=== PATIENT | female | born 1980 | race Two or more races ===

== ENCOUNTER 2024-07-23 14:30 | Outpatient (RCR) | payer MEDICAID, SELFPAY ==
--- NOTE | 2024-07-16 14:10 | PTNOTE_ITS ---
PT OP Initial Eval Patient Information Outpatient Physical Therapy Treatment Date: 07/16/24 Visit Reasons: lower back pain Medical Diagnosis: M51.36 Treatment Dx #1: LBP with radiculopathy Start of Care: 07/16/24 Date of Onset: 1 yr ago Smoking Status Smoking Status: Current every day smoker Cessation Counseling Provided: BLOSSOM was advised that quitting smoking is the single most important factor to protect the health of themselves and their family. Discussed the benefits of quitting smoking with patient. Encouraged patient to quit smoking and provided Cessation assistance materials and resources. Tobacco Use: Cigarette Years smoked: 26 Are you interested in quitting?: No Initial Assessment Subjective: Pt is 43 yr old female who reports long Hx of LBP that runs down the L LE and that has worsened over the past year. Increased pain with sitting >10 mins, sweeping, bending and twisting and lifting. PMH: none reported Imaging: Xray of L/S in EMR Early degenerative disc disease L3-L4, L4-L5 Pt goal: to get rid of the pain Objective: Trunk ArOM: ? B SB 50% of normal with pain ? Extension: 20% with pain around L4-5, L5-S1 ? Flexion: 5 from floor with LBP ? B rotation: 60% ? TTP: moderate paraspinals L5-S1 ? Neuro: L SLR: positive Assessment: ? Pt presents with trunk flexion sensitivity and overlying myofascial pain ? and TTP around L5-S1 consistent with ? lower lumbar disc bulge(s) with radiculopathy. Pt requires skilled therapy in order to decrease ? pain and improve sitting/standing tolerance and has fair rehab potential. Eval ?followed by HEP printout. 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 1. Ind with HEP ? 2. Improved sitting/standing tolerance to 30 minutes with <=4/10 LBP ? 3. Decreased lower paraspinal TTP from mod to min 4. Improved HH chore tolerance to at least 30 minutes with <=3/10 LBP and no ?increase in LE ssx ? Treatment Plan ? 1. Manual therapy ? 2. Therex ? 3. Modalities as indicated, moist heat, ice, estim, mechanical traction Frequency and Duration: 1-2x a week for 12 sessions plus eval Certification Dates: 07/16/24 to 10/12/24 Procedure Charges OP PT Eval Mod Complex 30 minutes: Yes
--- NOTE | 2024-07-23 19:30 | PT.ODAYNRPT ---
PT Outpatient Daily Note OP Daily Note Outpatient Physical Therapy Treatment Date: 07/23/24 Visit Reasons: lower back pain Subjective: Same as time of evaluatoin Objective: See F/S for therex MT: STM L/S with flexbar x7' Assessment: Moderate TTP of L/S on R with MT Plan: Continue per POC Length of Time (minutes) of Treatment: 30 Minutes Procedure Charges Therapeutic Exercise 30 minutes: Yes
== END 2024-08-06 23:59 | disposition home or self-care (01) ==
LOC: CPTX 14:30
PROVIDERS: PCP Physician Assistant; Referring Provider Physician Assistant; Visit Provider Physician Assistant
DX: M54.16 Radiculopathy, lumbar region (principal)
CPT/HCPCS: 97110; 97162

== ENCOUNTER 2024-08-16 11:21 | Emergency (ER) | payer MEDICAID, SELFPAY ==
[2024-08-16 11:59] VITALS: BP 128/80; PULSE 93; RESP 18; TEMP 36.9; O2SAT 98
--- NOTE | 2024-08-16 11:59 | XR_ITS ---
Examination: CT brain head without contrast. 2-D sagittal coronal reconstructions Date and time of exam:August 16, 20242022 hours INDICATIONS: Generalized head pain today CTDI: vol (mGy):49.5 DLP: (mGycm):1075 Technique: Multiple CT axial sections of the brain have been obtained, 5 mm slice thickness. Contrast has not been administered. 2-D sagittal, coronal reconstructions have been obtained Low dose protocols were performed. One or more of the following dose reduction techniques were used; automated exposure control, adjustment of the mA and/or KV according to patient size, use of iterative reconstruction technique. Findings: No significant ventricular enlargement. Intra-axial or extra-axial hemorrhage density is not seen. No mass effect or midline shift Basal cisterns are not remarkable. Fourth ventricle is midline. Cranial vault intact. Impression: Negative for acute hemorrhage, mass effect or midline shift Advise clinical correlation and follow-up accordingly
--- NOTE | 2024-08-16 13:07 | PD.EDHA ---
ED Headache RME/HPI General Chief Complaint: Headache Stated Complaint: HEAD PAIN FOR MONTH Time Seen by Provider: 08/16/24 11:27 Arrival date/time: 08/16/24 11:21 43-year-old female presents the emergency department complaint of headache x 1 month patient reports no fever nausea or vomiting no neck pain no dizziness or weakness Limitations: no limitations Related Data Home Medications ?Medication ?Instructions ?Recorded ?Confirmed acetaminophen 325 mg tablet 325 mg PO Q4H PRN Pain 08/11/22 10/05/22 ibuprofen 800 mg tablet 800 mg PO Q8H PRN Pain 08/11/22 08/11/22 sertraline 50 mg tablet 50 mg PO QDAY 08/11/22 10/05/22 ondansetron HCl 4 mg tablet 4 mg PO Q6H 10/05/22 10/05/22 Previous Rx's ?Medication ?Instructions ?Recorded tramadol 100 mg tablet 100 mg PO BID PRN pain #8 tabs 09/20/22 acetaminophen 500 mg capsule 1,000 mg (2 x 500 mg) PO Q8HR PRN 07/19/23 pain #30 caps ibuprofen 800 mg tablet 800 mg PO TID PRN pain #30 tabs 07/19/23 rizatriptan 10 mg disintegrating See Rx Instructions PO .COMPLEX 11/30/23 tablet (Maxalt-CREDIT ADMINISTRATOR) #30 tabs acetaminophen-caffeine 500 mg-65 1 tab PO Q6H PRN pain #30 tabs 08/16/24 mg tablet (Excedrin Tension Headache) ibuprofen 800 mg tablet 800 mg PO TID PRN pain #30 tabs 08/16/24 Allergies Allergy/AdvReac Type Severity Reaction Status Date / Time No Known Allergies Allergy Verified 08/16/24 11:24 Review of Systems Review of Systems Systems Reviewed: All systems reviewed, normal except as documented Constitutional Constitutional: Reports system reviewed and no additional complaints, except as documented, Denies fever(s) and Reports headache(s) Eyes Eyes: Reports system reviewed and no additional complaints, except as documented and Denies blurry vision ENT Ears, Nose, Mouth, and Throat: Reports system reviewed and no additional complaints, except as documented, Reports headache(s), Denies nasal congestion and Denies nasal discharge Cardiovascular Cardiovascular: Reports system reviewed and no additional complaints, except as documented, Denies chest pain and Denies dyspnea Respiratory Respiratory: Reports system reviewed and no additional complaints, except as documented, Denies chest congestion, Denies cough and Denies dyspnea Gastrointestinal Gastrointestinal: Reports system reviewed and no additional complaints, except as documented and Denies abdominal pain Integumentary/Breasts Skin/Breast: Reports system reviewed and no additional complaints, except as documented and Denies rash Neurologic Neurologic: Reports system reviewed and no additional complaints, except as documented, Reports as per HPI and Reports headache(s) Past Medical History Past Medical History NEUROLOGIC: Negative Neurological Disorders, Cerebrovascular Accident, Transient Ischemic Attacks (TIA), Dementia, Alzheimer's Disease, Parkinson's Disease, Brain Tumor, Meningitis, Seizures, Epilepsy, Multiple Sclerosis, Cerebral Palsy, Amyotrophic Lateral Sclerosis (ALS/Tasha Gehrig's), Guillain-Flushing Syndrome, Spina Bifida, Paralysis, Peripheral Neuropathy, Mckenna's Palsy, Subdural Hematoma, Migraine, Head Trauma, Spinal Cord Injury or Traumatic Brain Injury CARDIAC: Negative Cardiac Disorders, Myocardial Infarction, Cardiac Arrhythmia, Atrial Fibrillation, Angina, Heart Murmur, Coronary Artery Disease, Atherosclerotic Heart Disease, Peripheral Vascular Disease, Hypercholesterolemia, Aneurysm, Congestive Heart Failure, Congenital Heart Disease, Valvular Heart Disease, Rheumatic Fever, Cardiomyopathy, Edema, Pericarditis, Cellulitis, Deep Vein Thrombosis, Hypertension, Hypotension or Varicose Veins RESPIRATORY: Negative Chronic Obstructive Pulmonary Disease (COPD), Asthma, Bronchitis, Emphysema, Pneumonia, Pulmonary Fibrosis, Cystic Fibrosis, Tuberculosis, Pulmonary Embolism, Pulmonary Edema or Sleep Apnea GASTROINTESTINAL: Negative Gastrointestinal Disorders, Hepatitis, Cirrhosis, Pancreatitis, Celiac Disease, Gall Bladder Disease, Gastrointestinal Bleed, Esophageal Varices, Medrano's Esophagus, Colitis, Ulcerative Colitis, Diverticulitis, Diverticulosis, Ulcer, Colorectal Cancer, Irritable Bowel, Crohn's Disease, Obstructive Bowel, Hiatal Hernia, Hemorrhoids, Gastroesophageal Reflux Disease or Obesity GENITOURINARY: Negative Genitourinary Disorders, Renal Disease, Kidney Stones, Polycystic Kidney Disease, Neurogenic Bladder, Inguinal Hernia, Dialysis, Prostate Cancer or Benign Prostatic Hyperplasia REPRODUCTIVE: Positive Previous Pregnancies; Negative Breast Cancer, Endometriosis, Genital Herpes, Gonorrhea, Pelvic Inflammatory Disease, Syphilis, Testicular Cancer or Uterine Prolapse MUSCULOSKELETAL: Negative Musculoskeletal Disorders, Muscular Dystrophy, Myasthenia Gravis, Marfan's Syndrome, Bone Cancer, Arthritis, Rheumatoid Arthritis, Osteoporosis, Degenerative Disk Disease, Gout, Scoliosis, Carpal Tunnel Syndrome, Fibromyalgia, Fractures, Degenerative Joint Disease, Osteomyelitis or Poliovirus ENT: Negative Cataracts, Glaucoma, Blind, Retinal Detachment, Macular Degeneration, Ear Infection, Deafness, Head Trauma or Eye Prosthesis ENDOCRINE: Negative Endocrine Disorders, Diabetes Mellitus Type 1, Diabetes Mellitus Type 2, Hypoglycemia, Edilson's Syndrome, Huy's Disease, Hyperthyroidism, Hypothyroidism, Parathyroid Disease, Pituitary Disease, Systemic Lupus Erythematosus, Syndrome of Inappropriate Antidiuretic Hormone (SIADH), Adrenal Disease or Graves' Disease HEMATOLOGIC: Negative Blood Disorders, Anemia, Leukemia, Hemophilia, Thalassemia, Sickle Cell Disease or Clotting Problems PSYCHO/SOCIAL: Negative Psychiatric Problems, Schizophrenia, Recreational Drug Use, Bipolar Disorder, Depression, Anxiety, Behavior Problems, Self-Mutilation, Attention Deficit Disorder, Attention Deficit Hyperactivity Disorder, Depression, Post Traumatic Stress Disorder or Eating Disorder OTHER HISTORY: Positive Blood Transfusions; Negative Hospitalization, Autoimmune Disease, Down Syndrome, Autism, Developmental Delay, Shingles, Falls, Blood Transfusion Reaction, Anesthesia Reactions, Organ Transplant, Chemotherapy, Radiation Therapy, Hyperbaric Therapy, MRSA, VRSA, Vancomycin-Resistant Enterococci, Human Immunodeficiency Virus (HIV), Chicken Pox, Measles, Mumps, Rubella (Mosotho Measles), Pertussis, Clostridium Difficile, Cancer, Breast Cancer, Cervical Cancer, Colorectal Cancer, Lung Cancer, Ovarian Cancer, Prostate Cancer or Testicular Cancer Family History FAMILY HISTORY: Positive Family Respiratory Disorders and Family Cardiac Disorders; Negative Family Psychiatric Problems, Family Gastrointestinal Problems, Family Cancer, Family Surgery or Family Anesthesia Reaction Surgical History SURGICAL: Negative Cardiac Surgery, Open Heart Surgery, Coronary Artery Bypass Graft, Valve Replacement, Vascular Surgery, Coronary Stent, Cardiac Catheterization, Pacemaker, Angiogram, Auto Implanted Cardiovert Defib, Carotid Endarterectomy, Endocrine Surgery, Thyroidectomy, Ear Surgery, Tympanostomy Tube, Eye Surgery, Nose Surgery, Oral Surgery, Tonsillectomy, Adenoidectomy, Cochlear Implant, Corneal Transplant, Throat Surgery, Abdominal Surgery, Tracheostomy, Gastric Bypass Surgery, Gastrostomy, Bowel Surgery, Nephrectomy, Transurethral Resection, Joint Replacement, Amputation, Open Reduction Internal Fixation, Arthroscopy, Neurologic Surgery, Brain Shunt, Mastectomy, Lumpectomy, Hysterectomy, Tubal Ligation, Section, Vasectomy or Organ Transplant Social History SMOKING STATUS: Heavy (> 1 pack/day) SECOND HAND EXPOSURE: No SUBSTANCE USE: does not use ED Exam General Limitations: Present no limitations General appearance: Present alert and in no apparent distress Head Head exam: Present atraumatic, normocephalic and normal inspection Eye Eye exam: Present normal appearance, PERRL and EOMI; Absent conjunctival injection ENT ENT exam: Present normal exam, normal oropharynx and mucous membranes moist Neck Neck exam: Present normal inspection, full ROM and trachea midline Chest Chest inspection: Present normal inspection and symmetric chest wall rise Respiratory Respiratory exam: Present normal lung sounds bilaterally; Absent respiratory distress Cardiovascular Cardiovascular exam: Present regular rate, normal rhythm and normal heart sounds Abdominal Exam Abdominal exam: Present soft and normal bowel sounds Extremities Exam Extremities exam: Present normal inspection and full ROM Back Exam Back exam: Present normal inspection and full ROM Neurological Exam Neurological exam: Present alert, oriented X3, CN II-XII intact, normal gait and reflexes normal; Absent motor sensory deficit Psychiatric Psychiatric exam: Present normal affect and normal mood Skin Skin exam: Present warm, dry, intact and normal color Course Quality Measures none Orders Category Date Time Status CT head/brain wo con Stat Exams 08/16/24 11:59 Completed Vital Signs Vital signs: Vital Signs Temperature 98.4 F 08/16/24 11:59 Pulse Rate 93 08/16/24 11:59 Respiratory Rate 18 08/16/24 11:59 Blood Pressure 128/80 08/16/24 11:59 Pulse Oximetry (%) 98 08/16/24 11:59 Oxygen Delivery Method Room Air 08/16/24 11:59 O2 saturation 98% room air within normal limits Headache MDM Narrative MDM Narrative:: 43-year-old female presents the emergency department complaint of headache x 1 month patient reports no fever nausea or vomiting no neck pain no dizziness or weakness On exam patient well-appearing patient does not appear ill or toxic in no acute distress CT of the head obtained no acute emergent findings noted As patient walks with a steady gait has no abnormal neurological findings patient be discharged home at this time Patient discharged home in no distress to follow-up with primary care doctor in the next 24 to 48 hours and for any worsening symptoms to return to the ER immediately Patient data External records reviewed:: [facility] previous records Clinical information provided by:: patient Social determinants that could affect healthcare access:: none Patient has the following chronic illnesses:: None How is presenting disease/condition affected by chronic disease/condition?: no chronic disease Evaluation data The following diagnostics were reviewed and interpreted by me:: radiology exam(s) Lab and/or radiology exams considered but not ordered:: Radiology obtain Interpretation Summary: Reviewed by me Medications / Prescriptions Medications or Prescriptions considered but not ordered:: Given Medication administrations:: Given Consultations Consultation(s) initiated? (list below): No Diagnosis Differential diagnosis headache: migraine and tension headache Most likely diagnosis given after review of the tests above:: Headache Admission Indicated Admission indicated?: not indicated Admission Request Was there a request for admission?: No Disposition Plan Disposition Plan: Discharge Discharge Attestation Discharge Attestation: The patient and all family members were given an opportunity to ask questions and understood the discharge instructions. Discharge instructions specifically effects, indications for sooner follow up or return to the emergency department, and the expected course of current diagnosis. Patient condition: Stable Discharge Plan Plan Patient Disposition: HOME (Self Care) Disposition Comment: Stable Prescriptions/Referrals Prescriptions/Med Rec: New Excedrin Tension Headache 500-65 mg tablet 1 tab PO Q6H PRN (Reason: pain) Qty: 30 0RF ibuprofen 800 mg tablet 800 mg PO TID PRN (Reason: pain) Qty: 30 0RF No Action ibuprofen 800 mg tablet 800 mg PO TID PRN (Reason: pain) Qty: 30 0RF acetaminophen 500 mg capsule 1,000 mg PO Q8HR PRN (Reason: pain) Qty: 30 0RF acetaminophen 325 mg tablet 325 mg PO Q4H PRN (Reason: Pain) Patient Comments: TAKE ONE TABLET BY MOUTH EVERY 4 HOURS NEEDED ibuprofen 800 mg tablet 800 mg PO Q8H PRN (Reason: Pain) Patient Comments: TAKE ONE TABLET BY MOUTH EVERY 8 HOURS WITH FOOD OR MILK NEEDED sertraline 50 mg tablet 50 mg PO QDAY Patient Comments: TAKE ONE TABLET BY MOUTH EVERY DAY tramadol 100 mg tablet 100 mg PO BID PRN (Reason: pain) Qty: 8 0RF rizatriptan [Maxalt-CREDIT ADMINISTRATOR] 10 mg tablet,disintegrating See Rx Instructions .ROUTE .COMPLEX Qty: 30 0RF Rx Instructions: take 1 tab at onset of headache; if no relief may repeat 1 tab after at least 2 hrs; max = 3 tabs/24 hr Referrals: Kaushal Echeverria MD [Primary Care Provider] - In 1 week Problem List Clinical Impression: Headache Patient/Caregiver Discharge Instructions Education Materials: Self-Care for Headaches Additional Instructions: Please follow up with your primary care doctor in the next 24-48hrs for any worsening symptoms return here immediately Print Language: Macedonian Stand Alone Forms: Anabell Andrea Info., Work/School Release, Patient Portal Info Letter PA/WATER SOFTENER SERVICE SUPERVISOR Supervising Physician PA/WATER SOFTENER SERVICE SUPERVISOR Supervising Physician: Dr. Herzog
--- NOTE | 2024-08-16 15:10 | PC.NURSE ---
CALLED FROM [facility] AND NO ANSWER
--- NOTE | 2024-08-16 15:20 | PC.NURSE ---
CALLED FROM [facility] AND NO ANSWER
--- NOTE | 2024-08-16 16:12 | PC.NURSE ---
CALLED FROM [facility] AND NO ANSWER
== END 2024-08-16 16:13 | disposition home or self-care (01) ==
PROVIDERS: Emergency Provider Emergency Medicine; PCP Family Medicine
DX: R51.9 Headache, unspecified (principal)
CPT/HCPCS: 70450; 99284

== ENCOUNTER 2024-09-02 14:00 | Outpatient (RCR) | payer MEDICAID, SELFPAY ==
--- NOTE | 2024-08-20 15:33 | PT.ODAYNRPT ---
PT Outpatient Daily Note OP Daily Note Outpatient Physical Therapy Treatment Date: 08/20/24 Visit Reasons: Low back pain Subjective: Pt c/o moderate LBP. Objective: Please see flow sheet for ther e x list. Assessment: Pt requires rest breaks due to poor tolerance with prolonged laying in supine, aggravates LBP. Plan: Continue with POC. Length of Time (minutes) of Treatment: 30 Minutes Procedure Charges Therapeutic Exercise 30 minutes: Yes
--- NOTE | 2024-08-29 14:09 | PT.ODAYNRPT ---
PT Outpatient Daily Note OP Daily Note Outpatient Physical Therapy Treatment Date: 08/29/24 Visit Reasons: Low back pain Subjective: Pt reports moderate LBP, no progress to at this time. Objective: Please see flow sheet for ther ex list. Assessment: Pt demonstrates poor activity tolerance due to pain response. Plan: Continue with POC. Length of Time (minutes) of Treatment: 30 Minutes Procedure Charges Therapeutic Exercise 30 minutes: Yes
--- NOTE | 2024-09-02 14:30 | PT.ODAYNRPT ---
PT Outpatient Daily Note OP Daily Note Outpatient Physical Therapy Treatment Date: 09/02/24 Visit Reasons: Low back pain Subjective: Continued LBP Objective: See F/S for therex MT: STM L/S with flexbar x7' Assessment: Slow progress with goals due to moderate TTP of L/S on R with MT Plan: Continue per POC Length of Time (minutes) of Treatment: 30 Minutes Procedure Charges Therapeutic Exercise 30 minutes: Yes
== END 2024-09-06 23:59 | disposition home or self-care (01) ==
LOC: CPTX 14:00
PROVIDERS: PCP Physician Assistant; Referring Provider Physician Assistant; Visit Provider Physician Assistant
DX: M54.16 Radiculopathy, lumbar region (principal)
CPT/HCPCS: 97110

== ENCOUNTER → 2025-05-20 | Outpatient (CLI) | payer MEDICAID, SELFPAY ==
--- NOTE | 2025-05-20 16:15 | XR_ITS ---
Examination: MRI lumbar spine without contrast Date and time of exam: May 20, 2025, 1631 hours INDICATIONS: Low back pain 18 years radiating down the legs Technique: Multiple MRI axial and sagittal sections lumbar spine. Sagittal T2-weighted images, TR 3500, TE 118 T1 weighted transverse sections, TR 688 T8.5, T2-weighted sagittal sections T1 weighted sagittal sections TR 621, TE 30 T2 axial sections, TR 4, 190, TE 84. Findings: Adequate alignment lumbar vertebral bodies No lumbar fracture. Disc desiccation L4-L5 Normal marrow signal and lumbar vertebral bodies No spondylolisthesis L5-S1 2 mm central lumbar disc bulge L4-L5 4 mm central lumbar disc bulge L3-L4 4 mm bilateral foraminal disc bulges no ganglionic compression L2-L3 no disc protrusion L1-L2 no disc protrusion IMPRESSION: L5-S1 2 mm central lumbar disc bulge L4-L5 4 mm central lumbar disc bulge
== END | disposition home or self-care (01) ==
LOC: SMRI 15:54
PROVIDERS: PCP Physician Assistant; Referring Provider Physician Assistant; Visit Provider Physician Assistant
DX: M51.370 Other intervertebral disc degeneration, lumbosacral region with discogenic back pain only (principal); M51.360 Other intervertebral disc degeneration, lumbar region with discogenic back pain only; G89.29 Other chronic pain
CPT/HCPCS: 72148

== ENCOUNTER 2025-08-05 16:37 | Emergency (ER) | payer MEDICAID, SELFPAY ==
[2025-08-05 17:04] VITALS: BP 119/81; PULSE 89; RESP 20; TEMP 37.3; O2SAT 97; BMI 31.2
--- NOTE | 2025-08-05 17:06 | XR_ITS ---
Examination: CT abdomen and pelvis without contrast. Coronal 3-D reconstructions. Sagittal 2-D reconstructions. Date and time of exam: August 05, 2025, 2037 hours, comparison September 17, 2022 INDICATIONS: Lower abdominal pain radiating to the back beginning 2 days ago CTDI: vol (mGy): 10.6 DLP: (mGycm): 599 Technique: Axial images of the abdomen have been obtained, 3 mm slice thickness Intravenous contrast material has not been administered. Low dose protocols were performed. One or more of the following dose reduction techniques were used; automated exposure control, adjustment of the mA and/or KV according to patient size, use of iterative reconstruction technique. Findings: Fatty infiltration throughout the liver Absent gallbladder Spleen not enlarged No pancreatic or adrenal mass No renal or ureteral calculi, no hydronephrosis Aorta normal size Normal appendix 15 mm fat-containing umbilical hernia No bowel obstruction No diverticulitis Mild free fluid in the pelvis Anteverted uterus, suspicious for uterine fundal mass 4 cm Intact osseous structures IMPRESSION: No renal or ureteral calculi, no hydronephrosis Normal appendix 15 mm fat-containing umbilical hernia Recommend pelvic sonography follow-up given the free fluid in the pelvis and uterine fundal mass
[2025-08-05 18:15] LABS: Basophils # (Auto) 0.1 Thou/mm3 (0.0-0.2); Basophils % (Auto) 1 % (0-2.5); Eosinophils # (Auto) 0.2 Thou/mm3 (0.0-0.5); Eosinophils % (Auto) 1 % (0-10); Hematocrit 39.8 % (36.0-46.0); Hemoglobin 13.3 g/dL (12.0-16.0); Immature Granulocytes Auto 0.04 Thou/mm3 (0.00-0.00); Lymphocytes # (Auto) 3.2 Thou/mm3 (1.0-4.8); Lymphocytes % (Auto) 26 % (10-50); Mean Corpuscular HGB Conc 33.4 g/dl (31.0-37.0); Mean Corpuscular Hemoglobin 30.4 pg (25.0-35.0); Mean Corpuscular Volume 91 fL (80-100); Monocytes # (Auto) 1.0 Thou/mm3 (0.0-0.8); Monocytes % (Auto) 8 % (0-12); Neutrophils # (Auto) 8.0 Thou/mm3 (1.8-7.7); Neutrophils % (Auto) 64 % (37-80); Nucleated Red Blood Cell # 0.00 Thou/mm3 (0.00-0.00); Nucleated Red Blood Cell % 0 /100 WBC (0); Platelet Count 305 Thou/mm3 (140-440); RDW Standard Deviation 39.9 fL (36.4-46.3); Red Blood Count 4.37 Miln/mm3 (4.00-5.20); White Blood Count 12.5 Thou/mm3 (3.6-11.0)
[2025-08-05 18:33] LABS: Alanine Aminotransferase 35 U/L (10-49); Albumin, Serum 4.6 gm/dL (3.5-5.0); Albumin/Globulin Ratio 1.8 (1.2-2.2); Alkaline Phosphatase 67 U/L (46-116); Anion Gap 8 (7-16); Aspartate Amino Transferase 20 U/L (0-34); BUN/Creatinine Ratio 14 Ratio (12-20); Bilirubin,Total 0.3 mg/dL (0.3-1.2); Blood Urea Nitrogen 11 mg/dL (9-23); Calcium 8.9 mg/dL (8.3-10.6); Calcium (Corrected) 8.9 mg/dL (8.5-10.1); Carbon Dioxide 26.3 mMol/L (20.0-31.0); Chloride 107 mMol/L (98-107); Creatinine (Component) 0.8 mg/dL (0.6-1.3); Estimated Creatinine Clearance 98.8 mL/min (>60); Globulin 2.5 gm/dL (2.3-3.5); Glucose 105 mg/dL (74-106); Lipase 31 U/L (12-53); Osmolality,Calculated 280 (275-295); Potassium 4.1 mMol/L (3.4-5.1); Sodium 141 mMol/L (136-145); Total Protein 7.1 gm/dL (5.7-8.2); eGFR > 60 See Note
[2025-08-05 19:21] LABS: Collection Type, Urine Clean Catch
[2025-08-05 19:28] LABS: Bilirubin,Urine Negative (Negative); Blood,Urine Negative (Negative); Clarity,Urine Clear (Clear/Hazy); Color,Urine Lt-Yellow (Lt Yel-Yel); Glucose, Urine Negative (Negative); HCG Qualitative,Urine Negative; Ketones,Urine Negative (Negative); Leukocyte Esterase,Urine Negative (Negative); Nitrite,Urine Negative (Negative); PH,Urine 6.5 (5.0-7.0); Protein,Urine Negative (Neg - Trace); RBC,Urine 2 /hpf (0-3); Specific Gravity,Urine 1.018 (1.001-1.035); Squamous Epithelial Cell,Urine 3 /hpf (0-5); Urobilinogen,Urine Negative mg/dL (0.0-1.0); WBC,Urine < 1 /hpf (0-5)
--- NOTE | 2025-08-05 22:34 | PD.EDRME ---
Rapid Medical Screening Exam RME Arrival date/time: 08/05/25 16:37 This is a case of 44-year-old female who came into the emergency room due to both lower abdominal pain radiating to the back and sore throat with subjective fever for 2 days persistence of the symptoms this patient decided to sought consult here in the emergency room Chief Complaint: Dental/Oral/Throat Time Seen by Provider: 08/05/25 16:41 Vital signs: Vital Signs Temperature 99.1 F 08/05/25 17:04 Pulse Rate 89 08/05/25 17:04 Respiratory Rate 20 08/05/25 17:04 Blood Pressure 119/81 08/05/25 17:04 Pulse Oximetry (%) 97 08/05/25 17:04 Oxygen Delivery Method Room Air 08/05/25 17:04 Exam: Moderate tenderness suprapubic area no guarding no rebound no rigidity bilateral tonsils were swollen red but no exudate no peritonsillar Clinical Impression: Abdominal pain sorethroat
--- NOTE | 2025-08-05 23:31 | PD.EDDENTL ---
ED Dental RME/HPI General Chief complaint: Dental/Oral/Throat Stated complaint: R) TONSIL & MARQUISE GROIN LYMPH NODES SWOLLEN/SORE Time Seen by Provider: 08/05/25 16:41 Arrival date/time: 08/05/25 16:37 RME / HPI RME / HPI Narrative: 08/05/25 16:37 This is a case of 44-year-old female who came into the emergency room due to both lower abdominal pain radiating to the back and sore throat with subjective fever for 2 days persistence of the symptoms this patient decided to sought consult here in the emergency room Dr. [facility] ED Evaluation: 44yo female presents to the ED for a chief complaint of bilateral lower abdominal pain that radiates to her back x 2 days. Patient describes her pain as strong cramping in nature. Patient subsequently complains of right throat pain. She denies any cough, chest pain, shortness of breath, fever, chills, N/V, dysuria, or any other associated symptoms. NKA. Related Data Home Medications ?Medication ?Instructions ?Recorded ?Confirmed acetaminophen 325 mg tablet 325 mg PO Q4H PRN Pain 08/11/22 10/05/22 ibuprofen 800 mg tablet 800 mg PO Q8H PRN Pain 08/11/22 08/11/22 sertraline 50 mg tablet 50 mg PO QDAY 08/11/22 10/05/22 ondansetron HCl 4 mg tablet 4 mg PO Q6H 10/05/22 10/05/22 Previous Rx's ?Medication ?Instructions ?Recorded tramadol 100 mg tablet 100 mg PO BID PRN pain #8 tabs 09/20/22 acetaminophen 500 mg capsule 1,000 mg (2 x 500 mg) PO Q8HR PRN 07/19/23 pain #30 caps ibuprofen 800 mg tablet 800 mg PO TID PRN pain #30 tabs 07/19/23 rizatriptan 10 mg disintegrating See Rx Instructions PO .COMPLEX 11/30/23 tablet (Maxalt-[employer]) #30 tabs acetaminophen-caffeine 500 mg-65 1 tab PO Q6H PRN pain #30 tabs 08/16/24 mg tablet (Excedrin Tension Headache) ibuprofen 800 mg tablet 800 mg PO TID PRN pain #30 tabs 08/16/24 Allergies Allergy/AdvReac Type Severity Reaction Status Date / Time No Known Allergies Allergy Verified 08/05/25 16:40 Review of Systems Review of Systems Systems Reviewed: All systems reviewed, normal except as documented Past Medical History Past Medical History NEUROLOGIC: Negative Neurological Disorders, Cerebrovascular Accident, Transient Ischemic Attacks (TIA), Dementia, Alzheimer's Disease, Parkinson's Disease, Brain Tumor, Meningitis, Seizures, Epilepsy, Multiple Sclerosis, Cerebral Palsy, Amyotrophic Lateral Sclerosis (ALS/Tasha Gehrig's), Guillain-[place] Syndrome, Spina Bifida, Paralysis, Peripheral Neuropathy, Mckenna's Palsy, Subdural Hematoma, Migraine, Head Trauma, Spinal Cord Injury or Traumatic Brain Injury CARDIAC: Negative Cardiac Disorders, Myocardial Infarction, Cardiac Arrhythmia, Atrial Fibrillation, Angina, Heart Murmur, Coronary Artery Disease, Atherosclerotic Heart Disease, Peripheral Vascular Disease, Hypercholesterolemia, Aneurysm, Congestive Heart Failure, Congenital Heart Disease, Valvular Heart Disease, Rheumatic Fever, Cardiomyopathy, Edema, Pericarditis, Cellulitis, Deep Vein Thrombosis, Hypertension, Hypotension or Varicose Veins RESPIRATORY: Negative Chronic Obstructive Pulmonary Disease (COPD), Asthma, Bronchitis, Emphysema, Pneumonia, Pulmonary Fibrosis, Cystic Fibrosis, Tuberculosis, Pulmonary Embolism, Pulmonary Edema or Sleep Apnea GASTROINTESTINAL: Negative Gastrointestinal Disorders, Hepatitis, Cirrhosis, Pancreatitis, Celiac Disease, Gall Bladder Disease, Gastrointestinal Bleed, Esophageal Varices, Medrano's Esophagus, Colitis, Ulcerative Colitis, Diverticulitis, Diverticulosis, Ulcer, Colorectal Cancer, Irritable Bowel, Crohn's Disease, Obstructive Bowel, Hiatal Hernia, Hemorrhoids, Gastroesophageal Reflux Disease or Obesity GENITOURINARY: Negative Genitourinary Disorders, Renal Disease, Kidney Stones, Polycystic Kidney Disease, Neurogenic Bladder, Inguinal Hernia, Dialysis, Prostate Cancer or Benign Prostatic Hyperplasia REPRODUCTIVE: Positive Previous Pregnancies; Negative Breast Cancer, Endometriosis, Genital Herpes, Gonorrhea, Pelvic Inflammatory Disease, Syphilis, Testicular Cancer or Uterine Prolapse MUSCULOSKELETAL: Negative Musculoskeletal Disorders, Muscular Dystrophy, Myasthenia Gravis, Marfan's Syndrome, Bone Cancer, Arthritis, Rheumatoid Arthritis, Osteoporosis, Degenerative Disk Disease, Gout, Scoliosis, Carpal Tunnel Syndrome, Fibromyalgia, Fractures, Degenerative Joint Disease, Osteomyelitis or Poliovirus ENT: Negative Cataracts, Glaucoma, Blind, Retinal Detachment, Macular Degeneration, Ear Infection, Deafness, Head Trauma or Eye Prosthesis ENDOCRINE: Negative Endocrine Disorders, Diabetes Mellitus Type 1, Diabetes Mellitus Type 2, Hypoglycemia, Edilson's Syndrome, Huy's Disease, Hyperthyroidism, Hypothyroidism, Parathyroid Disease, Pituitary Disease, Systemic Lupus Erythematosus, Syndrome of Inappropriate Antidiuretic Hormone (SIADH), Adrenal Disease or Graves' Disease HEMATOLOGIC: Negative Blood Disorders, Anemia, Leukemia, Hemophilia, Thalassemia, Sickle Cell Disease or Clotting Problems PSYCHO/SOCIAL: Negative Psychiatric Problems, Schizophrenia, Recreational Drug Use, Bipolar Disorder, Depression, Anxiety, Behavior Problems, Self-Mutilation, Attention Deficit Disorder, Attention Deficit Hyperactivity Disorder, Depression, Post Traumatic Stress Disorder or Eating Disorder OTHER HISTORY: Positive Blood Transfusions; Negative Hospitalization, Autoimmune Disease, Down Syndrome, Autism, Developmental Delay, Shingles, Falls, Blood Transfusion Reaction, Anesthesia Reactions, Organ Transplant, Chemotherapy, Radiation Therapy, Hyperbaric Therapy, MRSA, VRSA, Vancomycin-Resistant Enterococci, Human Immunodeficiency Virus (HIV), Chicken Pox, Measles, Mumps, Rubella (Indonesian Measles), Pertussis, Clostridium Difficile, Cancer, Breast Cancer, Cervical Cancer, Colorectal Cancer, Lung Cancer, Ovarian Cancer, Prostate Cancer or Testicular Cancer Family History FAMILY HISTORY: Positive Family Respiratory Disorders and Family Cardiac Disorders; Negative Family Psychiatric Problems, Family Gastrointestinal Problems, Family Cancer, Family Surgery or Family Anesthesia Reaction Surgical History SURGICAL: Negative Cardiac Surgery, Open Heart Surgery, Coronary Artery Bypass Graft, Valve Replacement, Vascular Surgery, Coronary Stent, Cardiac Catheterization, Pacemaker, Angiogram, Auto Implanted Cardiovert Defib, Carotid Endarterectomy, Endocrine Surgery, Thyroidectomy, Ear Surgery, Tympanostomy Tube, Eye Surgery, Nose Surgery, Oral Surgery, Tonsillectomy, Adenoidectomy, Cochlear Implant, Corneal Transplant, Throat Surgery, Abdominal Surgery, Tracheostomy, Gastric Bypass Surgery, Gastrostomy, Bowel Surgery, Nephrectomy, Transurethral Resection, Joint Replacement, Amputation, Open Reduction Internal Fixation, Arthroscopy, Neurologic Surgery, Brain Shunt, Mastectomy, Lumpectomy, Hysterectomy, Tubal Ligation, Section, Vasectomy or Organ Transplant Social History SMOKING STATUS: Current every day smoker SECOND HAND EXPOSURE: No SUBSTANCE USE: does not use ED Exam Narrative Physical exam: Generally patient is alert and in no obvious distress, heart regular rate and rhythm, lungs clear to auscultation equal bilaterally, abdomen is soft bowel sounds present nondistended and currently nontender, extremities show no edema, neurologic exam shows Armando Coma Scale of 15 without focal motor deficit. Oropharynx is moist and clear. Neck showed no adenopathy. Course Quality Measures none Orders Category Date Time Status Bedside STREP Test NOW Care 08/05/25 17:[address] abdomen pelvis wo con Stat Exams 08/05/25 17:06 Completed CBC Stat Lab 08/05/25 17:36 Completed Comprehensive Metabolic Panel Stat Lab 08/05/25 17:36 Completed HCG Qualitative,Urine Stat Lab 08/05/25 18:40 Completed Lipase Stat Lab 08/05/25 17:36 Completed Urinalysis Stat Lab 08/05/25 18:40 Completed Vital Signs Vital signs: Vital Signs Temperature 99.1 F 08/05/25 17:04 Pulse Rate 89 08/05/25 17:04 Respiratory Rate 20 08/05/25 17:04 Blood Pressure 119/81 08/05/25 17:04 Pulse Oximetry (%) 97 08/05/25 17:04 Oxygen Delivery Method Room Air 08/05/25 17:04 Dental / Oral MDM Narrative MDM Narrative:: Scribe Attestation: 08/05/25 - I, Stefanie Echeverria am scribing for and in the presence of Dr. Winn. I interpreted all labs. CT scan done the abdomen pelvis was unremarkable. Abdominal exam was benign. Urine was not infected. was negative. White count was 12,000. Patient is stable for discharge. Patient data External records reviewed:: [facility] previous records (Per chart review, patient was seen here on 08/16/24 for a headache.) Clinical information provided by:: patient Social determinants that could affect healthcare access:: none Patient has the following chronic illnesses:: none How is presenting disease/condition affected by chronic disease/condition?: no chronic disease Evaluation data The following diagnostics were reviewed and interpreted by me:: lab results and radiology exam(s) Lab and/or radiology exams considered but not ordered:: none Interpretation Summary: [facility] Report Signed Patient: BLOSSOM HUNTER. Record#: [id number] Birthdate: 1980 Age/Sex: 44 / F Location: [facility] Attending Dr: Ordering Physician: Liliana Montiel Date of Service: 08/05/25 Procedure(s): CT abdomen pelvis wo con Accession Number(s): [id number] cc: Kaushal Echeverria MD; Isiah Pearson MD; Montiel,Noralda Q RESEARCH NURSE~ Examination: CT abdomen and pelvis without contrast. Coronal 3-D reconstructions. Sagittal 2-D reconstructions. Date and time of exam: August 05, 2025, 2037 hours, comparison September 17, 2022 INDICATIONS: Lower abdominal pain radiating to the back beginning 2 days ago CTDI: vol (mGy): 10.6 DLP: (mGycm): 599 Technique: Axial images of the abdomen have been obtained, 3 mm slice thickness Intravenous contrast material has not been administered. Low dose protocols were performed. One or more of the following dose reduction techniques were used; automated exposure control, adjustment of the mA and/or KV according to patient size, use of iterative reconstruction technique. Findings: Fatty infiltration throughout the liver Absent gallbladder Spleen not enlarged No pancreatic or adrenal mass No renal or ureteral calculi, no hydronephrosis Aorta normal size Normal appendix 15 mm fat-containing umbilical hernia No bowel obstruction No diverticulitis Mild free fluid in the pelvis Anteverted uterus, suspicious for uterine fundal mass 4 cm Intact osseous structures IMPRESSION: No renal or ureteral calculi, no hydronephrosis Normal appendix 15 mm fat-containing umbilical hernia Recommend pelvic sonography follow-up given the free fluid in the pelvis and uterine fundal mass Dictated By: Isiah Pearson MD Signed By: <Electronically signed by Isiah Pearson MD in [place]> 08/05/25 2240 Medications / Prescriptions Medications or Prescriptions considered but not ordered:: none Medication administrations:: none Consultations Consultation(s) initiated? (list below): No Diagnosis Dental Differential Diagnosis: other (See MDM) Most likely diagnosis given after review of the tests above:: see clinical impression below Admission Indicated Admission indicated?: not indicated Admission Request Was there a request for admission?: No Disposition Plan Disposition Plan: Discharge Discharge Attestation Discharge Attestation: The patient and all family members were given an opportunity to ask questions and understood the discharge instructions. Discharge instructions specifically effects, indications for sooner follow up or return to the emergency department, and the expected course of current diagnosis. Patient condition: Stable Discharge Plan Plan Patient Disposition: HOME (Self Care) Prescriptions/Referrals Prescriptions/Med Rec: No Action ibuprofen 800 mg tablet 800 mg PO TID PRN (Reason: pain) Qty: 30 0RF acetaminophen 500 mg capsule 1,000 mg PO Q8HR PRN (Reason: pain) Qty: 30 0RF acetaminophen 325 mg tablet 325 mg PO Q4H PRN (Reason: Pain) Patient Comments: TAKE ONE TABLET BY MOUTH EVERY 4 HOURS NEEDED ibuprofen 800 mg tablet 800 mg PO Q8H PRN (Reason: Pain) Patient Comments: TAKE ONE TABLET BY MOUTH EVERY 8 HOURS WITH FOOD OR MILK NEEDED sertraline 50 mg tablet 50 mg PO QDAY Patient Comments: TAKE ONE TABLET BY MOUTH EVERY DAY tramadol 100 mg tablet 100 mg PO BID PRN (Reason: pain) Qty: 8 0RF rizatriptan [Maxalt-[employer] SPECIALIST] 10 mg tablet,disintegrating See Rx Instructions .ROUTE .COMPLEX Qty: 30 0RF Rx Instructions: take 1 tab at onset of headache; if no relief may repeat 1 tab after at least 2 hrs; max = 3 tabs/24 hr Excedrin Tension Headache 500-65 mg tablet 1 tab PO Q6H PRN (Reason: pain) Qty: 30 0RF ibuprofen 800 mg tablet 800 mg PO TID PRN (Reason: pain) Qty: 30 0RF Referrals: Kaushal Echeverria MD [Primary Care Provider, Family Practice] - In 1 week Problem List Clinical Impression: Abdominal pain Patient/Caregiver Discharge Instructions Education Materials: Abdominal Pain Additional Instructions: No abnormality was seen on the labs or CT scan tonight. Follow-up with your doctor for further treatment and evaluation as needed. Print Language: Luxembourger Stand Alone Forms: [employer] Award Info., Patient Portal Info Letter
== END 2025-08-05 23:56 | disposition home or self-care (01) ==
PROVIDERS: Nurse Practitioner Family; Emergency Provider Emergency Medicine; PCP Family Medicine
DX: K42.9 Umbilical hernia without obstruction or gangrene (principal)
CPT/HCPCS: 36415; 74176; 80053; 81001; 81025; 83690; 85025; 87651; 99283